=== PATIENT | male | born 1940 | race Caucasian/White ===

== ENCOUNTER 2021-01-03 14:40 | Emergency (ER) | payer MEDICARE, OTHER ==
--- NOTE | 2021-01-03 15:07 | EDM.PDOC ---
ED HPI GENERAL MEDICAL PROBLEM - General Chief Complaint: Chest Pain Stated Complaint: CHEST PAIN/DISCOMFORT Time Seen by Provider: 01/03/21 15:00 Source of Information: Reports: Patient, Provider. Denies: Old Records (no old records) History Limitations: Reports: Other (limited records) - History of Present Illness INITIAL COMMENTS - FREE TEXT/NARRATIVE: 80 yo male new in the area from [place] presents with intermittent chest pain over the past few days associated with exertion and fatigue. He was seen a couple days ago in the clinic for this fatigue and now today when he returned for follow up he mentioned he was having mild chest discomfort and was then referred to the ER. He has a remote hx of receiving 2 coronary stents and has had a "Watchman procedure" for prevention of CVA from his afib which is chronic. Takes an enteric coated baby aspirin daily. Onset: Gradual Onset Date: 12/31/20 Duration: Day(s): (3), Waxing/Waning Location: Reports: Chest Quality: Reports: Other ("discomfort") Severity: Mild Improves with: Reports: Rest Worsens with: Reports: Movement (exertion) Context: Reports: Other (See HPI) Associated Symptoms: Reports: Chest Pain, Other (fatigue). Denies: Diaphoresis Treatments EVENTS ADMINISTRATIVE ASSISTANT: Reports: Other (see below) (none) - Related Data Allergies Allergy/AdvReac Type Severity Reaction Status Date / Time No Known Allergies Allergy Verified 01/03/21 15:24 Home Meds: Home Meds Alfuzosin [Uroxatral] 1 tab PO BEDTIME 01/03/21 [History] Aspirin 1 tab PO DAILY 01/03/21 [History] Doxycycline [Vibramycin] 1 tab PO BID 01/03/21 [History] Furosemide [Lasix] 1 tab PO DAILY 01/03/21 [History] Hydroxychloroquine Sulfate [Plaquenil] 1 tab PO DAILY 01/03/21 [History] LORazepam [Ativan] 1 tab PO BID 01/03/21 [History] Metoprolol Succinate [Toprol Xl] 1 tab PO BEDTIME 01/03/21 [History] Potassium Chloride [Klor-Con 10] 2 tab PO BID 01/03/21 [History] Valsartan 1 tab PO DAILY 01/03/21 [History] Zolpidem Tartrate [Ambien] 1 tab PO DAILY 01/03/21 [History] amLODIPine [Norvasc] 1 tab PO DAILY 01/03/21 [History] atorvaSTATin Calcium [Lipitor] 1 tab PO BEDTIME 01/03/21 [History] predniSONE [Prednisone] 1.5 tab PO DAILY 01/03/21 [History] ED ROS GENERAL - Review of Systems Review Of Systems: See Below Constitutional: Reports: Fatigue HEENT: Reports: No Symptoms Respiratory: Reports: No Symptoms Cardiovascular: Reports: Chest Pain Endocrine: Reports: No Symptoms GI/Abdominal: Reports: No Symptoms : Reports: No Symptoms Musculoskeletal: Reports: No Symptoms Skin: Reports: No Symptoms Neurological: Reports: No Symptoms Psychiatric: Reports: No Symptoms ED EXAM, GENERAL - Physical Exam Exam: See Below Exam Limited By: No Limitations General Appearance: Alert, WD/WN, No Apparent Distress Eye Exam: Bilateral Eye: Normal Inspection Ears: Normal External Exam, Normal Canal, Hearing Grossly Normal, Normal TMs Ear Exam: Bilateral Ear: Auricle Normal, Canal Normal, TM normal Nose: Normal Inspection, No Blood Throat/Mouth: Normal Inspection, Normal Lips, Normal Oropharynx, Normal Voice, No Airway Compromise Head: Atraumatic, Normocephalic Neck: Normal Inspection Respiratory/Chest: No Respiratory Distress, Lungs Clear, Normal Breath Sounds, No Accessory Muscle Use Cardiovascular: No Edema, Irregularly Irregular. No: Tachycardia GI/Abdominal: Normal Bowel Sounds, Soft, Non-Tender, No Distention Extremities: Normal Inspection, Normal Range of Motion, No Pedal Edema. No: Pedal Edema, Wilberto's Sign Neurological: Alert, Oriented, CN II-XII Intact, Normal Cognition, No Motor/Sensory Deficits Psychiatric: Normal Affect, Normal Mood Skin Exam: Warm, Dry, Intact, Normal Color, No Rash #1 Interpretation EKG Date: 01/03/21 Time: 15:00 Rhythm: A-Fib Rate (Beats/Min): 70 [place]: Normal P-Wave: Present QRS: Normal ST-T: Normal QT: Normal Comparison: NA - No Prior EKG Course - Vital Signs Text/Narrative:: Called [facility] @ 1738h, Last Recorded V/S: Last Vital Signs Temp 36.4 C 01/03/21 15:36 Pulse 71 01/03/21 16:47 Resp 15 01/03/21 16:47 BP 170/91 H 01/03/21 16:47 Pulse Ox 98 01/03/21 16:47 - Orders/Labs/Meds Orders: Active Orders 24 hr Category Date Time Status EKG Documentation Completion [RC] ASDIRECTED Care 01/03/21 14:43 Active Sodium Chloride 0.9% [Saline Flush] Med 01/03/21 15:49 Active 10 ml FLUSH ASDIRECTED PRN Saline Lock Insert [OM.PC] Routine Oth 01/03/21 15:49 Ordered EKG 12 Lead [EK] Routine Ther 01/03/21 14:43 Ordered Medication Orders Sodium Chloride (Sodium Chloride 0.9% 10 Ml Syringe) 10 ml FLUSH ASDIRECTED PRN PRN Reason: Keep Vein Open Labs: Laboratory Tests 01/03/21 01/03/21 Range/Units 14:43 14:55 D-Dimer, Quantitative 3135.17 H (0.0-500.0) ng/mL Troponin I < 0.017 (0.000-0.056) ng/mL Meds: Medications Generic Name Dose Route Start Last Admin Trade Name Freq PRN Reason Stop Dose Admin Sodium Chloride 10 ml 01/03/21 15:49 Sodium Chloride 0.9% 10 Ml Syringe FLUSH ASDIRECTED PRN Keep Vein Open Discontinued Medications Generic Name Dose Route Start Last Admin Trade Name Freq PRN Reason Stop Dose Admin Aspirin 324 mg 01/03/21 15:19 Aspirin 81 Mg Tab.Chew PO 01/03/21 15:20 ONETIME ONE Sodium Chloride 97 mls @ 3.5 mls/sec 01/03/21 16:15 01/03/21 16:18 Normal Saline IV 01/03/21 16:16 3.5 mls/sec ASDIRECTED MARY LOU Administration Iopamidol 100 ml 01/03/21 16:15 01/03/21 16:18 Iopamidol 755 Mg/Ml 100 Ml Bottle IV 01/03/21 16:16 100 ml . DIRECTED MARY LOU Administration Sodium Chloride 10 ml 01/03/21 16:08 01/03/21 16:18 Sodium Chloride 0.9% 10 Ml Syringe FLUSH 01/03/21 16:09 10 ml ONETIME ONE Administration - Radiology Interpretation Free Text/Narrative:: angio chest- IMPRESSION: No sign of pulmonary embolism. Mild diffuse peripheral ground-glass reticular density in the lateral and posterior lower lungs consistent with UIP. Previous granulomatous disease. 3 millimeter nonobstructive calculus in the upper pole of the right kidney. Please note that all CT scans at this facility use dose modulation, iterative reconstruction, and/or weight-based dosing when appropriate to reduce radiation dose to as low as reasonably achievable. Dictated by Abraham To MD @ 01/03/2021 5:31:39 PM (Electronic Signature) CT Results Date: 01/03/21 CT Results Time: 17:34 Departure - Departure Time of Disposition: 17:47 Disposition: Home, Self-Care 01 Condition: Serious Clinical Impression: Unstable angina Instructions: Angina, [id number] Referrals: PCP,None [Primary Care Provider] - Forms: ED Department Discharge Additional Instructions: Continue your current meds. Use nitroglycerin as needed for chest pain. See your doctor soy. Sepsis Event Note (ED) - Focused Exam Vital Signs: Vital Signs Temp Pulse Resp BP Pulse Ox 01/03/21 16:47 71 15 170/91 H 98 01/03/21 15:36 36.4 C 81 21 H 117/66 94 L 01/03/21 15:07 36.4 C 81 21 H 117/66 94 L - My Orders Last 24 Hours: My Active Orders 01/03/21 14:43 EKG Documentation Completion [RC] ASDIRECTED EKG 12 Lead [EK] Routine 01/03/21 15:49 Sodium Chloride 0.9% [Saline Flush] 10 ml FLUSH ASDIRECTED PRN Saline Lock Insert [OM.PC] Routine - Assessment/Plan Last 24 Hours: My Active Orders 01/03/21 14:43 EKG Documentation Completion [RC] ASDIRECTED EKG 12 Lead [EK] Routine 01/03/21 15:49 Sodium Chloride 0.9% [Saline Flush] 10 ml FLUSH ASDIRECTED PRN Saline Lock Insert [OM.PC] Routine
[2021-01-03] MEDS ORDERED: Aspirin 81 MG Tab.Chew PO ONE (15:19)
[2021-01-03] MEDS ORDERED: Sodium Chloride 0.9% 10 ML Syringe FLUSH PRN (15:49)
[2021-01-03] MEDS ORDERED: Sodium Chloride 0.9% 10 ML Syringe FLUSH ONE (16:08)
[2021-01-03] MEDS ORDERED: SODIUM CHLORIDE 0.9% IV SCH (16:15)
[2021-01-03] MEDS ORDERED: Iopamidol 755 Mg/ML 100 ML Bottle IV SCH (16:15)
--- NOTE | 2021-01-03 17:33 | CRLCT ---
For Patients: As a result of the Century Cures Act, medical imaging exams and procedure reports are released immediately into your electronic medical record. You may view this report before your referring provider. If you have questions, please contact your health care provider. INDICATION: Chest pain. Elevated D-dimer. COMPARISON: None available TECHNIQUE: CT examination of the chest was performed with the uneventful intravenous administration of 100 cc of Omnipaque 350 while 2 mm thick axial sections were obtained through the pulmonary arteries. Please note that all CT scans at this facility use dose modulation, iterative reconstruction, and/or weight-based dosing when appropriate to reduce radiation dose to as low as reasonably achievable. FINDINGS: : There is no sign of pulmonary embolism, with normal enhancement and branching of the pulmonary arteries. There are a few small calcified granulomata in the posterior lung bases bilaterally. There is mild patchy peripheral reticular scarring in the lower lungs bilaterally, extending along the lateral lower lungs as well, consistent with UIP. The lungs are otherwise clear with no sign of significant infiltrate or mass. There is no sign of mediastinal or hilar mass or adenopathy. There is a left atrial appendage occlusion device. There is heavy LAD and LCX coronary calcification. The heart is normal in size. There is age appropriate appearance of the thoracic aorta and ascending great vessels. There is no sign of supraclavicular or axillary mass or adenopathy. The visualized superior liver, spleen, pancreas, left kidney, and adrenals are normal in appearance. There is a 3 millimeter nonobstructive calculus in the upper pole of the right kidney. The osseous structures are normal in appearance for the patient`s age. IMPRESSION: No sign of pulmonary embolism. Mild diffuse peripheral ground-glass reticular density in the lateral and posterior lower lungs consistent with UIP. Previous granulomatous disease. 3 millimeter nonobstructive calculus in the upper pole of the right kidney. Please note that all CT scans at this facility use dose modulation, iterative reconstruction, and/or weight-based dosing when appropriate to reduce radiation dose to as low as reasonably achievable. Dictated by Abraham To MD @ 01/03/2021 5:31:[address] Abraham To @ Jan 03 2021 5:31PM
== END 2021-01-03 18:22 | disposition left against medical advice (07) ==
LOC: JP.ED 14:40
DX: I20.0 Unstable angina (principal); Z79.82 Long term (current) use of aspirin; Z79.899 Other long term (current) drug therapy
CPT/HCPCS: 36415; 71275; 84484; 85379; 93005; 93010; 99284; 99285; Q9967

== ENCOUNTER 2021-02-07 09:31 | Emergency (ER) | payer MEDICARE, OTHER ==
--- NOTE | 2021-02-07 09:57 | EDM.PDOC ---
ED HPI GENERAL MEDICAL PROBLEM - General Stated Complaint: CHEST PAIN FROM CLINIC Time Seen by Provider: 02/07/21 09:43 Source of Information: Reports: Patient, Old Records, RN Notes Reviewed History Limitations: Reports: No Limitations - History of Present Illness INITIAL COMMENTS - FREE TEXT/NARRATIVE: 80-year-old gentleman presents emergency department day complaint of chest pain that will wax and wane, he has a known history of aortic stenosis status post transaortic valve replacement. He recently had this surgery done earlier this year he currently has a loop recorder in place. Did present to the walk-in clinic complaint of chest pain transported to the emergency department for further evaluation. He denies any shortness of breath does complain of fatigue no nausea or vomiting no diaphoresis no history of coronary artery disease recent left catheterization he underwent left heart catheterization procedure was a transaortic valve replacement early part of January this year does have a k jenifer history of coronary artery disease LAD stenting x2 in 2014 has had atrial fibrillation since 2012 - Related Data Allergies Allergy/AdvReac Type Severity Reaction Status Date / Time No Known Allergies Allergy Verified 02/07/21 09:51 Home Meds: Home Meds Alfuzosin [Uroxatral] 1 tab PO BEDTIME 01/03/21 [History] Aspirin 1 tab PO DAILY 01/03/21 [History] Doxycycline [Vibramycin] 1 tab PO BID 01/03/21 [History] Furosemide [Lasix] 1 tab PO DAILY 01/03/21 [History] LORazepam [Ativan] 1 tab PO BID 01/03/21 [History] Metoprolol Succinate [Toprol Xl] 1 tab PO BEDTIME 01/03/21 [History] Potassium Chloride [Klor-Con 10] 2 tab PO BID 01/03/21 [History] Valsartan 1 tab PO DAILY 01/03/21 [History] Zolpidem Tartrate [Ambien] 1 tab PO DAILY 01/03/21 [History] amLODIPine [Norvasc] 1 tab PO DAILY 01/03/21 [History] atorvaSTATin Calcium [Lipitor] 1 tab PO BEDTIME 01/03/21 [History] predniSONE [Prednisone] 1.5 tab PO DAILY 01/03/21 [History] Nitroglycerin [Nitrostat] 1 tab PO ASDIRECTED PRN 01/04/21 [History] QUEtiapine [SEROquel] 50 mg PO DAILY 02/07/21 [History] Past Medical History Cardiovascular History: Reports: Afib, CAD, Heart Failure, High Cholesterol, Hypertension, Stents (LAD 2014) Musculoskeletal History: Reports: RA - Past Surgical History Cardiovascular Surgical History: Reports: Coronary Artery Stent (2014 in the LAD), Valve Replacement (Transaortic valve replacement 2020) Musculoskeletal Surgical History: Reports: Knee Replacement Social & Family History - Tobacco Use Tobacco Use Status *Q: Former Tobacco User ED ROS GENERAL - Review of Systems Review Of Systems: See Below Constitutional: Reports: No Symptoms HEENT: Reports: No Symptoms Respiratory: Reports: No Symptoms Cardiovascular: Reports: Chest Pain GI/Abdominal: Reports: No Symptoms ED EXAM, GENERAL - Physical Exam Exam: See Below Exam Limited By: No Limitations General Appearance: Alert, No Apparent Distress Respiratory/Chest: No Respiratory Distress, Lungs Clear, Normal Breath Sounds, No Accessory Muscle Use, Chest Non-Tender Cardiovascular: No Murmur, Irregularly Irregular GI/Abdominal: Soft, Non-Tender Extremities: No Pedal Edema #1 Interpretation EKG Date: 02/07/21 Time: 10:09 Rhythm: A-Fib [place]: Normal P-Wave: Absent QRS: Normal ST-T: Normal QT: Normal Comparison: NA - No Prior EKG Course - Vital Signs Last Recorded V/S: Last Vital Signs Temp 97.0 F 02/07/21 09:54 Pulse 97 02/07/21 09:54 Resp 13 02/07/21 09:54 BP 139/90 02/07/21 09:54 Pulse Ox 98 02/07/21 09:54 - Orders/Labs/Meds Orders: Active Orders 24 hr Category Date Time Status Cardiac Monitoring [RC] .As Directed Care 02/07/21 10:00 Active EKG Documentation Completion [RC] ASDIRECTED Care 02/07/21 10:01 Active Peripheral IV Care [RC] . DIRECTED Care 02/07/21 10:01 Active Chest 1V Frontal [CR] Stat Exams 02/07/21 10:01 Taken Morphine Med 02/07/21 10:00 Active 4 mg IVPUSH Q10M PRN Nitroglycerin [Nitrostat] Med 02/07/21 10:00 Active 0.4 mg SL Q5M PRN Sodium Chloride 0.9% [Saline Flush] Med 02/07/21 10:00 Active 10 ml FLUSH ASDIRECTED PRN Peripheral IV Insertion Adult [OM.PC] Stat Oth 02/07/21 10:00 Ordered Saline Lock Insert [OM.PC] Stat Oth 02/07/21 10:00 Ordered EKG 12 Lead [EK] Stat Ther 02/07/21 10:01 Ordered Medication Orders Morphine Sulfate (Morphine 4 Mg/Ml Syringe) 4 mg IVPUSH Q10M PRN PRN Reason: Chest Pain Stop: 02/08/21 10:01 Nitroglycerin (Nitroglycerin 0.4 Mg Tab.Sl) 0.4 mg SL Q5M PRN PRN Reason: Chest Pain Stop: 02/08/21 10:01 Sodium Chloride (Sodium Chloride 0.9% 10 Ml Syringe) 10 ml FLUSH ASDIRECTED PRN PRN Reason: Keep Vein Open Labs: Laboratory Tests 02/07/21 02/07/21 02/07/21 Range/Units 09:52 09:52 09:52 WBC 7.0 (4.5-11.0) K/uL RBC 3.81 L (4.30-5.90) M/uL Hgb 12.5 (12.0-15.0) g/dL Hct 36.6 L (40.0-54.0) % MCV 96 (80-98) fL MCH 33 H (27-31) pg MCHC 34 (32-36) % Plt Count 168 (150-400) K/uL Neut % (Auto) 70.6 H (36-66) % Lymph % (Auto) 15.8 L (24-44) % [place] % (Auto) 11.6 H (2-6) % Eos % (Auto) 1.7 L (2-4) % Baso % (Auto) 0.3 (0-1) % Sodium 142 (140-148) mmol/L Potassium 3.8 (3.6-5.2) mmol/L Chloride 106 (100-108) mmol/L Carbon Dioxide 26 (21-32) mmol/L Anion Gap 9.6 (5.0-14.0) mmol/L BUN 23 H (7-18) mg/dL Creatinine 1.3 (0.8-1.3) mg/dL Est Cr Clr Drug Dosing 46.08 mL/min Estimated GFR (MDRD) 53 L (>60) Glucose 118 H (74-106) mg/dL Lactic Acid 1.5 (0.4-2.0) mmol/L Calcium 8.6 (8.5-10.1) mg/dL Total Bilirubin 0.8 (0.2-1.0) mg/dL AST 33 (15-37) U/L ALT 34 (12-78) U/L Alkaline Phosphatase 82 (46-116) U/L Troponin I < 0.017 (0.000-0.056) ng/mL Total Protein 6.1 L (6.4-8.2) g/dL Albumin 3.2 L (3.4-5.0) g/dL Globulin 2.9 (2.3-3.5) g/dL Albumin/Globulin Ratio 1.1 L (1.2-2.2) Meds: Medications Generic Name Dose Route Start Last Admin Trade Name Freq PRN Reason Stop Dose Admin Morphine Sulfate 4 mg 02/07/21 10:00 Morphine 4 Mg/Ml Syringe IVPUSH 02/08/21 10:01 Q10M PRN Chest Pain Nitroglycerin 0.4 mg 02/07/21 10:00 Nitroglycerin 0.4 Mg Tab.Sl SL 02/08/21 10:01 Q5M PRN Chest Pain Sodium Chloride 10 ml 02/07/21 10:00 Sodium Chloride 0.9% 10 Ml Syringe FLUSH ASDIRECTED PRN Keep Vein Open Discontinued Medications Generic Name Dose Route Start Last Admin Trade Name Freq PRN Reason Stop Dose Admin Aspirin 324 mg 02/07/21 10:00 02/07/21 10:08 Aspirin 81 Mg Tab.Chew PO 02/07/21 10:01 324 mg ONETIME ONE Administration Departure - Departure Time of Disposition: 10:49 Disposition: Home, Self-Care 01 Condition: Fair Clinical Impression: Atypical chest pain Instructions: Nonspecific Chest Pain, Adult, [id number] Referrals: PCP,None [Primary Care Provider] - Additional Instructions: Continue with your regular medications, try some reflux medications such as Zantac, just to see if there is any change in symptoms, please follow-up with your primary care in the next 2 to 3 days for reevaluation call return to the emergency department worsening symptoms Sepsis Event Note (ED) - Focused Exam Vital Signs: Vital Signs Temp Pulse Resp BP Pulse Ox 02/07/21 09:54 97.0 F 97 13 139/90 98 - My Orders Last 24 Hours: My Active Orders 02/07/21 10:00 Cardiac Monitoring [RC] .As Directed Morphine 4 mg IVPUSH Q10M PRN Nitroglycerin [Nitrostat] 0.4 mg SL Q5M PRN Sodium Chloride 0.9% [Saline Flush] 10 ml FLUSH ASDIRECTED PRN Peripheral IV Insertion Adult [OM.PC] Stat Saline Lock Insert [OM.PC] Stat 02/07/21 10:01 EKG Documentation Completion [RC] ASDIRECTED Peripheral IV Care [RC] . DIRECTED Chest 1V Frontal [CR] Stat EKG 12 Lead [EK] Stat - Assessment/Plan Last 24 Hours: My Active Orders 02/07/21 10:00 Cardiac Monitoring [RC] .As Directed Morphine 4 mg IVPUSH Q10M PRN Nitroglycerin [Nitrostat] 0.4 mg SL Q5M PRN Sodium Chloride 0.9% [Saline Flush] 10 ml FLUSH ASDIRECTED PRN Peripheral IV Insertion Adult [OM.PC] Stat Saline Lock Insert [OM.PC] Stat 02/07/21 10:01 EKG Documentation Completion [RC] ASDIRECTED Peripheral IV Care [RC] . DIRECTED Chest 1V Frontal [CR] Stat EKG 12 Lead [EK] Stat Plan: Assessment Acuity = acute Site and laterality = atypical chest pain Etiology = unknown suspicious for reflux Manifestations = none Location of injury = Home Lab values = CBC CMP unremarkable troponin was negative EKG demonstrates atrial fibrillation which is not new, chest x-ray I did review films myself I cannot appreciate any acute process, the official read from radiology is pending Plan He describes his chest pain is lasting just a few seconds it is more in the epigastric region he did have pizza last night I am suspicious for reflux type symptomology. He never received any morphine or nitro while in the emergency department remained relatively chest pain-free. He is anxious about his multiple health conditions. Asked him to follow-up with his primary care in the next 2 to 3 days for reevaluation also to try some reflux medication just to see if there is any improvement This note was dictated using [employer] voice recognition software please call with any questions on syntax or grammar.
[2021-02-07] MEDS ORDERED: Sodium Chloride 0.9% 10 ML Syringe FLUSH PRN (10:00)
[2021-02-07] MEDS ORDERED: Morphine 4 MG/ML Syringe IVPUSH PRN (10:00)
[2021-02-07] MEDS ORDERED: Nitroglycerin 0.4 MG Tab.SL SL PRN (10:00)
[2021-02-07] MEDS ORDERED: Aspirin 81 MG Tab.Chew PO ONE (10:00)
--- NOTE | 2021-02-07 10:49 | CR ---
CHEST: Portable 02/07/2021 at 10:27 AM CLINICAL HISTORY:Chest pain COMPARISON:CT 01/03/2021 FINDINGS: Heart is mildly enlarged. Pulmonary vascularity is normal. There are atherosclerotic changes in the aorta.. No infiltrates are identified. There are no effusions Impression: Cardiomegaly No acute cardiopulmonary process.
== END 2021-02-07 11:03 | disposition home or self-care (01) ==
LOC: JP.ED 09:31
DX: R07.89 Other chest pain (principal); I48.91 Unspecified atrial fibrillation; I25.10 Atherosclerotic heart disease of native coronary artery without angina pectoris; I11.0 Hypertensive heart disease with heart failure; I50.9 Heart failure, unspecified; M06.9 Rheumatoid arthritis, unspecified; Z95.5 Presence of coronary angioplasty implant and graft; Z79.82 Long term (current) use of aspirin; Z79.899 Other long term (current) drug therapy; Z87.891 Personal history of nicotine dependence
CPT/HCPCS: 36415; 71045; 80053; 83605; 84484; 85025; 93005; 99285; A9270

== ENCOUNTER 2021-04-17 09:56 | Emergency (ER) | payer MEDICARE, OTHER ==
[2021-04-17] MEDS ORDERED: Ketorolac 30 MG/ML SDV IM ONE (10:46)
--- NOTE | 2021-04-17 10:51 | EDM.PDOC ---
ED HPI GENERAL MEDICAL PROBLEM - General Chief Complaint: Lower Extremity Injury/Pain Stated Complaint: SORE KNEE VERY PAINFUL Time Seen by Provider: 04/17/21 10:35 Source of Information: Reports: Patient, Old Records, RN History Limitations: Reports: No Limitations - History of Present Illness INITIAL COMMENTS - FREE TEXT/NARRATIVE: 80 yo male presents with R hip and knee pain. 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 Lives here now. 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 His primary at the local [facility] won't give him anything for the pain. Onset: Gradual Duration: Week(s):, Getting Worse Location: Reports: Lower Extremity, Right Quality: Reports: Sharp Severity: Moderate Improves with: Reports: Rest Worsens with: Reports: Movement Context: Reports: Other (See HPI) Associated Symptoms: Reports: Other (thinks the swelling in his legs is related ) Treatments EXPEDITER SERVICE ORDER: Reports: Other (see below) (none) Right Knee Pain Score (Numeric/FACES): 8 - Related Data Allergies Allergy/AdvReac Type Severity Reaction Status Date / Time No Known Allergies Allergy Verified 04/17/21 10:20 Home Meds: Home Meds Alfuzosin [Uroxatral] 1 tab PO BEDTIME 01/03/21 [History] Aspirin 1 tab PO DAILY 01/03/21 [History] Doxycycline [Vibramycin] 1 tab PO BID 01/03/21 [History] Furosemide [Lasix] 1 tab PO DAILY 01/03/21 [History] LORazepam [Ativan] 1 tab PO BID 01/03/21 [History] Metoprolol Succinate [Toprol Xl] 1 tab PO BEDTIME 01/03/21 [History] Potassium Chloride [Klor-Con 10] 2 tab PO BID 01/03/21 [History] Valsartan 1 tab PO DAILY 01/03/21 [History] Zolpidem Tartrate [Ambien] 1 tab PO DAILY 01/03/21 [History] amLODIPine [Norvasc] 1 tab PO DAILY 01/03/21 [History] atorvaSTATin Calcium [Lipitor] 1 tab PO BEDTIME 01/03/21 [History] predniSONE [Prednisone] 1.5 tab PO DAILY 01/03/21 [History] Acetaminophen [Tylenol Extra Strength] 2 tab PO Q8H PRN 04/17/21 [History] Ascorbic Acid [Vitamin C] 1 tab PO DAILY 04/17/21 [History] Fluticasone Propionate [Flonase] 2 sprays INH ASDIRECTED PRN 04/17/21 [History] Gabapentin [Neurontin] 300 mg PO TID 04/17/21 [History] Losartan [Cozaar] 50 mg PO DAILY 04/17/21 [History] Multivitamin 1 tab PO DAILY 04/17/21 [History] Sertraline [Zoloft] 50 mg PO DAILY 04/17/21 [History] Tamsulosin HCl [Flomax] 1 cap PO DAILY 04/17/21 [History] Vitamin E 400 unit PO DAILY 04/17/21 [History] Past Medical History Cardiovascular History: Reports: Afib, CAD, Heart Failure, High Cholesterol, Hypertension, Stents Other Cardiovascular History: valve replaced Musculoskeletal History: Reports: RA - Past Surgical History Cardiovascular Surgical History: Reports: Coronary Artery Stent, Valve Replacement Musculoskeletal Surgical History: Reports: Knee Replacement Social & Family History - Tobacco Use Tobacco Use Status *Q: Never Tobacco User Review of Systems - Review of Systems Review Of Systems: See Below Constitutional: Reports: No Symptoms Musculoskeletal: Reports: Joint Pain (R hip and knee) Skin: Reports: No Symptoms Neurological: Reports: No Symptoms ED EXAM, GENERAL - Physical Exam Exam: See Below Exam Limited By: No Limitations General Appearance: Alert, WD/WN, No Apparent Distress Respiratory/Chest: Lungs Clear, Normal Breath Sounds Cardiovascular: Regular Rate, Rhythm Extremities: Normal Inspection, Pedal Edema (trace pitting edema of both LE's), Limited Range of Motion (R hip more reduced than the L). No: Normal Range of Motion (severely reduced ROM of the R hip), Non-Tender, No Pedal Edema, Wilberto's Sign, Increased Warmth, Redness Neurological: Alert, Oriented, CN II-XII Intact, Normal Cognition, No Motor/Sensory Deficits Psychiatric: Normal Affect, Normal Mood Skin Exam: Warm, Dry, Intact, Normal Color, No Rash Course - Vital Signs Last Recorded V/S: Last Vital Signs Temp 36.7 C 04/17/21 10:19 Pulse 79 04/17/21 10:19 Resp 18 04/17/21 10:19 BP 166/95 H 04/17/21 10:19 Pulse Ox 99 04/17/21 10:19 - Orders/Labs/Meds Orders: Active Orders 24 hr Category Date Time Status Ketorolac [Toradol] Med 04/17/21 10:46 Once 30 mg IM ONETIME ONE - Re-Assessments/Exams Free Text/Narrative Re-Assessment/Exam: 04/17/21 10:53 Will have X-rays from [place] sent here to [facility]. Have an appt for 1330h today with Dr. Leong for [place]. Departure - Departure Time of Disposition: 11:15 Disposition: Home, Self-Care 01 Condition: Fair Clinical Impression: Right hip pain - Discharge Information *PRESCRIPTION DRUG MONITORING PROGRAM REVIEWED*: Not Applicable *COPY OF PRESCRIPTION DRUG MONITORING REPORT IN PATIENT COURT: Not Applicable Instructions: Hip Pain Referrals: Vargas Lora NP [Primary Care Provider] - Additional Instructions: Return here to [facility] by 1:15pm for an orthopedic appt with Dr. Leong. For your leg swelling: avoid salt or salty foods. Elevate your legs above your heart whenever possible. Consider support stockings. Sepsis Event Note (ED) - Evaluation Sepsis Screening Result: No Definite Risk - Focused Exam Vital Signs: Vital Signs Temp Pulse Resp BP Pulse Ox 04/17/21 10:19 36.7 C 79 18 166/95 H 99 - My Orders Last 24 Hours: My Active Orders 04/17/21 10:46 Ketorolac [Toradol] 30 mg IM ONETIME ONE - Assessment/Plan Last 24 Hours: My Active Orders 04/17/21 10:46 Ketorolac [Toradol] 30 mg IM ONETIME ONE
== END 2021-04-17 11:33 | disposition home or self-care (01) ==
LOC: JP.ED 09:56
DX: M25.551 Pain in right hip (principal); I48.91 Unspecified atrial fibrillation; I25.10 Atherosclerotic heart disease of native coronary artery without angina pectoris; I11.0 Hypertensive heart disease with heart failure; I50.9 Heart failure, unspecified; E78.00 Pure hypercholesterolemia, unspecified; Z95.5 Presence of coronary angioplasty implant and graft; Z79.82 Long term (current) use of aspirin; Z79.899 Other long term (current) drug therapy
CPT/HCPCS: 96372; 99283; J1885

== ENCOUNTER 2021-08-10 11:09 | Emergency (ER) | payer MEDICARE, OTHER ==
[2021-08-10] MEDS ORDERED: Metoprolol Tartrate 5 MG/5 ML SDV IVPUSH ONE ×3 (11:57→14:15)
[2021-08-10] MEDS ORDERED: Lactated Ringers 500 ML IV ONE (11:59)
[2021-08-10] MEDS ORDERED: Sodium Chloride 0.9% 10 ML Syringe FLUSH PRN (12:52)
[2021-08-10] MEDS ORDERED: Sodium Chloride 0.9% 100 ML IV SCH (13:00)
[2021-08-10] MEDS ORDERED: Iopamidol 755 Mg/ML 100 ML Bottle IV SCH (13:00)
[2021-08-10] MEDS ORDERED: Enoxaparin 100 MG/1 ML Syringe SUBCUT ONE (14:43)
== END 2021-08-10 17:24 ==
LOC: JP.ED 11:09
DX: I26.92 Saddle embolus of pulmonary artery without acute cor pulmonale (principal); U09.9 Post COVID-19 condition, unspecified; I48.91 Unspecified atrial fibrillation; M79.89 Other specified soft tissue disorders; I25.10 Atherosclerotic heart disease of native coronary artery without angina pectoris; I11.0 Hypertensive heart disease with heart failure; I50.9 Heart failure, unspecified; E78.00 Pure hypercholesterolemia, unspecified; Z95.5 Presence of coronary angioplasty implant and graft; Z79.82 Long term (current) use of aspirin; Z79.899 Other long term (current) drug therapy
CPT/HCPCS: 36415; 71275; 80048; 83735; 84443; 84484; 85027; 93005; 96372; 96374; 96376; 99285; J1650; J3490; J7120; Q9967

== ENCOUNTER 2021-09-01 12:42 | Emergency (ER) | payer MEDICARE, OTHER | END 2021-09-01 16:00 | disposition home or self-care (01) | LOC: JP.ED 12:42 | DX: I11.0 Hypertensive heart disease with heart failure (principal); I50.9 Heart failure, unspecified; I48.91 Unspecified atrial fibrillation; I25.10 Atherosclerotic heart disease of native coronary artery without angina pectoris; E78.00 Pure hypercholesterolemia, unspecified; Z95.5 Presence of coronary angioplasty implant and graft; Z79.82 Long term (current) use of aspirin; Z79.01 Long term (current) use of anticoagulants; Z79.899 Other long term (current) drug therapy | CPT/HCPCS: 36415; 71046; 71046-26; 80053; 83880; 84484; 85025; 85610; 93005; 99285-25 ==

== ENCOUNTER 2021-09-23 09:12 | Inpatient (IN) | payer MEDICARE, OTHER ==
[2021-09-23] MEDS ORDERED: Sodium Chloride 0.9% 10 ML Syringe FLUSH PRN (09:37)
[2021-09-23] MEDS ORDERED: Sodium Chloride 0.9% 1,000 ML IV SCH (09:45)
[2021-09-23] MEDS ORDERED: Norepinephrine Bit/D5W Premix 4 MG in Premix Bag 1 BAG IV SCH (10:03)
[2021-09-23] MEDS ORDERED: LORazepam 2 MG/ML SDV IVPUSH ONE (10:10)
[2021-09-23] MEDS ORDERED: Furosemide 40 MG/4 ML VIAL IVPUSH ONE ×2 (10:12→16:00)
[2021-09-23] MEDS ORDERED: Ondansetron 4 MG/2 ML SDV IV PRN (14:35)
[2021-09-23] MEDS ORDERED: WARFARIN 4 MG PO SCH (14:35)
[2021-09-23] MEDS ORDERED: Melatonin 3 MG Tab PO PRN (14:35)
[2021-09-23] MEDS ORDERED: LORazepam 0.5 MG Tab PO PRN (14:35)
[2021-09-23] MEDS ORDERED: Ondansetron 4 MG Tab.DIS PO PRN (14:35)
[2021-09-23] MEDS ORDERED: Albuterol 0.083% 2.5 MG/3 ML Neb Soln NEB PRN (14:35)
[2021-09-23] MEDS ORDERED: Magnesium Hydroxide 400 MG/5 ML Susp 30 ML Cup PO PRN (14:35)
[2021-09-23] MEDS: Gabapentin 300 MG Cap PO SCH ×2 (15:50→21:00)
[2021-09-23] MEDS ORDERED: Furosemide 40 MG, Furosemide 20 MG IV ONE ×2 (16:00)
[2021-09-23] MEDS: predniSONE 5 MG Tab PO SCH (17:00)
[2021-09-23] MEDS: LORazepam 2 MG/ML SDV IVPUSH PRN (17:12)
[2021-09-23] MEDS ORDERED: LORazepam 2 MG/ML SDV IVPUSH PRN (19:10)
[2021-09-23] MEDS ORDERED: Morphine 2 MG/ML SYRINGE IVPUSH PRN (19:11)
[2021-09-23] MEDS ORDERED: Non-Formulary Medication 1 Each (Trazodone [Trazodone] 100 MG Tablet) PO SCH (21:00)
[2021-09-23] MEDS: Metoprolol Succinate 50 MG Tab.ER PO SCH (21:00)
[2021-09-23] MEDS ORDERED: Non-Formulary Medication 1 Each (Atorvastatin Calcium [Lipitor] 40 MG Tablet) PO SCH (21:00)
[2021-09-23] MEDS: atorvaSTATin 20 MG Tab PO SCH (21:00)
[2021-09-23] MEDS: LORazepam 0.5 MG Tab PO PRN (21:02)
[2021-09-23] MEDS: traZODone 50 MG Tab PO SCH (21:02)
[2021-09-23] MEDS: Alfuzosin 10 MG Tab.ER PO SCH (21:03)
[2021-09-24] MEDS ORDERED: Digoxin 500 MCG/2 ML Amp IVPUSH ONE (00:26)
[2021-09-24] MEDS ORDERED: Furosemide 40 MG/4 ML VIAL IVPUSH ONE (02:00)
[2021-09-24] MEDS: LORazepam 2 MG/ML SDV IVPUSH PRN (04:52)
[2021-09-24] MEDS: LORazepam 0.5 MG Tab PO PRN ×3 (07:50→20:25)
[2021-09-24] MEDS: Acetaminophen 325 MG Tab PO PRN (07:56)
[2021-09-24] MEDS: Gabapentin 300 MG Cap PO SCH ×3 (08:29→20:26)
[2021-09-24] MEDS: predniSONE 5 MG Tab PO SCH (08:30)
[2021-09-24] MEDS: Aspirin 81 MG Tab.Chew PO SCH (08:31)
[2021-09-24] MEDS ORDERED: predniSONE 5 MG Tab PO SCH (09:00)
[2021-09-24] MEDS ORDERED: Escitalopram 10 MG Tab PO SCH (09:00)
[2021-09-24] MEDS: Escitalopram 10 MG Tab PO SCH (09:08)
[2021-09-24] MEDS ORDERED: Furosemide 40 MG/4 ML VIAL IVPUSH SCH (10:00)
[2021-09-24] MEDS: Furosemide 40 MG, Furosemide 20 MG IV SCH ×4 (10:43→17:22)
[2021-09-24] MEDS: Hydrocortisone Sodium Succinate 100 MG/2 ML SDV IVPUSH SCH ×2 (10:45→22:11)
[2021-09-24] MEDS: atorvaSTATin 20 MG Tab PO SCH (20:26)
[2021-09-24] MEDS: Metoprolol Succinate 50 MG Tab.ER PO SCH (20:26)
[2021-09-24] MEDS: traZODone 50 MG Tab PO SCH (20:26)
[2021-09-24] MEDS: Alfuzosin 10 MG Tab.ER PO SCH (20:27)
[2021-09-25] MEDS: Furosemide 40 MG, Furosemide 20 MG IV SCH ×6 (02:18→17:50)
[2021-09-25] MEDS: predniSONE 5 MG Tab PO SCH (08:17)
[2021-09-25] MEDS: Aspirin 81 MG Tab.Chew PO SCH (08:18)
[2021-09-25] MEDS: Gabapentin 300 MG Cap PO SCH ×3 (08:18→21:28)
[2021-09-25] MEDS: Escitalopram 10 MG Tab PO SCH (08:18)
[2021-09-25] MEDS ORDERED: Potassium Chloride 20 MEQ Tab.ER PO ONE ×2 (09:00→17:30)
[2021-09-25] MEDS: Hydrocortisone Sodium Succinate 100 MG/2 ML SDV IVPUSH SCH ×2 (09:06→21:27)
[2021-09-25] MEDS ORDERED: Potassium Chloride 20 MEQ, Lidocaine 1% 2 ML in Sodium Chloride 0.9% 100 ML IV SCH (10:00)
[2021-09-25] MEDS ORDERED: Digoxin 125 MCG Tab PO ONE ×2 (10:30→13:00)
[2021-09-25] MEDS: Metoprolol Succinate 50 MG Tab.ER PO SCH (21:27)
[2021-09-25] MEDS: traZODone 50 MG Tab PO SCH (21:27)
[2021-09-25] MEDS: Alfuzosin 10 MG Tab.ER PO SCH (21:28)
[2021-09-25] MEDS: atorvaSTATin 20 MG Tab PO SCH (21:28)
[2021-09-26] MEDS: Furosemide 40 MG, Furosemide 20 MG IV SCH ×6 (02:14→18:40)
[2021-09-26] MEDS: Aspirin 81 MG Tab.Chew PO SCH (08:38)
[2021-09-26] MEDS: Escitalopram 10 MG Tab PO SCH (08:39)
[2021-09-26] MEDS: Gabapentin 300 MG Cap PO SCH ×3 (08:39→21:33)
[2021-09-26] MEDS: predniSONE 5 MG Tab PO SCH (08:39)
[2021-09-26] MEDS: Potassium Chloride 20 MEQ Tab.ER PO SCH (08:41)
[2021-09-26] MEDS ORDERED: Sodium Chloride 0.65% Nasal Spray 45 ML Bottle NAS PRN (18:06)
[2021-09-26] MEDS: Metoprolol Succinate 50 MG Tab.ER PO SCH (21:33)
[2021-09-26] MEDS: Alfuzosin 10 MG Tab.ER PO SCH (21:34)
[2021-09-26] MEDS: traZODone 50 MG Tab PO SCH (21:34)
[2021-09-26] MEDS: atorvaSTATin 20 MG Tab PO SCH (21:38)
[2021-09-27] MEDS: Furosemide 40 MG, Furosemide 20 MG IV SCH ×2 (02:43)
[2021-09-27] MEDS ORDERED: Potassium Chloride 20 MEQ in Premix Bag 1 BAG IV ONE ×2 (05:30→07:30)
[2021-09-27] MEDS ORDERED: Lidocaine 1% 5 ML VIAL INJECT ONE (05:30)
[2021-09-27] MEDS ORDERED: Potassium Chloride 20 MEQ, Lidocaine 1% 2 ML in Sodium Chloride 0.9% 100 ML IV ONE (07:30)
[2021-09-27] MEDS: predniSONE 5 MG Tab PO SCH (08:00)
[2021-09-27] MEDS: Gabapentin 300 MG Cap PO SCH ×3 (08:01→20:15)
[2021-09-27] MEDS: Aspirin 81 MG Tab.Chew PO SCH (08:01)
[2021-09-27] MEDS: Potassium Chloride 20 MEQ Tab.ER PO SCH (08:01)
[2021-09-27] MEDS: Escitalopram 10 MG Tab PO SCH (08:01)
[2021-09-27] MEDS: Acetaminophen 325 MG Tab PO PRN (09:54)
[2021-09-27] MEDS ORDERED: Furosemide 40 MG/4 ML VIAL IV SCH (10:00)
[2021-09-27] MEDS ORDERED: guaiFENesin/Dextromethorphan 100-10 MG/5 ML Soln 10 ML Cup PO PRN (10:11)
[2021-09-27] MEDS ORDERED: Benzonatate 100 MG Cap PO PRN (10:11)
[2021-09-27] MEDS: Metoprolol Succinate 50 MG Tab.ER PO SCH (20:15)
[2021-09-27] MEDS: atorvaSTATin 20 MG Tab PO SCH (20:17)
[2021-09-27] MEDS: traZODone 50 MG Tab PO SCH (20:17)
[2021-09-27] MEDS: Furosemide 40 MG/4 ML VIAL IV SCH (20:18)
[2021-09-27] MEDS: Alfuzosin 10 MG Tab.ER PO SCH (20:20)
[2021-09-28] MEDS: Acetaminophen 325 MG Tab PO PRN (07:57)
[2021-09-28] MEDS: Aspirin 81 MG Tab.Chew PO SCH (08:04)
[2021-09-28] MEDS: Potassium Chloride 20 MEQ Tab.ER PO SCH (08:05)
[2021-09-28] MEDS: Furosemide 40 MG/4 ML VIAL IV SCH ×2 (08:06→15:30)
[2021-09-28] MEDS: Gabapentin 300 MG Cap PO SCH ×3 (08:08→21:39)
[2021-09-28] MEDS: Escitalopram 10 MG Tab PO SCH (08:09)
[2021-09-28] MEDS: predniSONE 5 MG Tab PO SCH (08:09)
[2021-09-28] MEDS: traMADol 50 MG Tab PO SCH ×2 (10:01→21:39)
[2021-09-28] MEDS: Potassium Chloride 20 MEQ, Lidocaine 1% 2 ML in Sodium Chloride 0.9% 100 ML IV SCH ×2 (10:55→13:22)
[2021-09-28] MEDS: Metoprolol Succinate 50 MG Tab.ER PO SCH (21:40)
[2021-09-28] MEDS: atorvaSTATin 20 MG Tab PO SCH (21:40)
[2021-09-28] MEDS: traZODone 50 MG Tab PO SCH (21:40)
[2021-09-28] MEDS: Alfuzosin 10 MG Tab.ER PO SCH (21:41)
[2021-09-29] MEDS: Furosemide 40 MG/4 ML VIAL IV SCH ×3 (01:26→16:14)
[2021-09-29] MEDS: Aspirin 81 MG Tab.Chew PO SCH (08:35)
[2021-09-29] MEDS: predniSONE 5 MG Tab PO SCH (08:36)
[2021-09-29] MEDS: Escitalopram 10 MG Tab PO SCH (08:36)
[2021-09-29] MEDS: Gabapentin 300 MG Cap PO SCH ×3 (08:36→20:02)
[2021-09-29] MEDS: Potassium Chloride 20 MEQ Tab.ER PO SCH (08:36)
[2021-09-29] MEDS: traMADol 50 MG Tab PO SCH ×2 (08:38→20:05)
[2021-09-29] MEDS ORDERED: Potassium Chloride 20 MEQ Tab.ER PO ONE ×2 (12:00→17:00)
[2021-09-29] MEDS: atorvaSTATin 20 MG Tab PO SCH (20:02)
[2021-09-29] MEDS: Alfuzosin 10 MG Tab.ER PO SCH (20:02)
[2021-09-29] MEDS: Metoprolol Succinate 50 MG Tab.ER PO SCH (20:02)
[2021-09-29] MEDS: traZODone 50 MG Tab PO SCH (20:03)
[2021-09-30] MEDS: predniSONE 5 MG Tab PO SCH (08:00)
[2021-09-30] MEDS: Escitalopram 10 MG Tab PO SCH (08:00)
[2021-09-30] MEDS: Aspirin 81 MG Tab.Chew PO SCH (08:00)
[2021-09-30] MEDS: Gabapentin 300 MG Cap PO SCH ×3 (08:00→21:03)
[2021-09-30] MEDS: Furosemide 40 MG Tab PO SCH (08:01)
[2021-09-30] MEDS: Potassium Chloride 20 MEQ Tab.ER PO SCH (08:02)
[2021-09-30] MEDS: traMADol 50 MG Tab PO SCH ×2 (08:08→21:04)
[2021-09-30] MEDS: Metoprolol Succinate 50 MG Tab.ER PO SCH (21:03)
[2021-09-30] MEDS: atorvaSTATin 20 MG Tab PO SCH (21:03)
[2021-09-30] MEDS: Alfuzosin 10 MG Tab.ER PO SCH (21:04)
[2021-09-30] MEDS: traZODone 50 MG Tab PO SCH (21:04)
[2021-10-01] MEDS: Potassium Chloride 20 MEQ Tab.ER PO SCH (08:29)
[2021-10-01] MEDS: Furosemide 40 MG Tab PO SCH (08:29)
[2021-10-01] MEDS: Escitalopram 10 MG Tab PO SCH (08:29)
[2021-10-01] MEDS: predniSONE 5 MG Tab PO SCH (08:30)
[2021-10-01] MEDS: Gabapentin 300 MG Cap PO SCH ×2 (08:30→13:25)
[2021-10-01] MEDS: Aspirin 81 MG Tab.Chew PO SCH (08:30)
[2021-10-01] MEDS: traMADol 50 MG Tab PO SCH (08:32)
== END 2021-10-01 14:05 | disposition home or self-care (01) | DRG 280 ==
LOC: JP.ED 09:12 → UNDOADMIN 13:35 → JP.ICU 13:35 → UNDOADMIN 14:35 → UNDODISIN 10-01 14:05
PROVIDERS: ADMIT Internal Medicine; ATTEND Internal Medicine
DX: I50.9 Heart failure, unspecified (principal); I13.0 Hypertensive heart and chronic kidney disease with heart failure and stage 1 through stage 4 chronic kidney disease, or unspecified chronic kidney disease; I48.91 Unspecified atrial fibrillation; I11.0 Hypertensive heart disease with heart failure; I26.02 Saddle embolus of pulmonary artery with acute cor pulmonale; I21.A1 Myocardial infarction type 2; Z95.5 Presence of coronary angioplasty implant and graft; Z86.16 Personal history of COVID-19; J96.01 Acute respiratory failure with hypoxia; Z86.711 Personal history of pulmonary embolism; Z95.2 Presence of prosthetic heart valve; N17.9 Acute kidney failure, unspecified; U09.9 Post COVID-19 condition, unspecified; J84.10 Pulmonary fibrosis, unspecified; N18.32 Chronic kidney disease, stage 3b; H91.90 Unspecified hearing loss, unspecified ear; J30.9 Allergic rhinitis, unspecified; E78.00 Pure hypercholesterolemia, unspecified; I25.10 Atherosclerotic heart disease of native coronary artery without angina pectoris; I27.20 Pulmonary hypertension, unspecified; E66.9 Obesity, unspecified; F32.A Depression, unspecified; M19.90 Unspecified osteoarthritis, unspecified site; M06.9 Rheumatoid arthritis, unspecified; N40.0 Benign prostatic hyperplasia without lower urinary tract symptoms; I50.811 Acute right heart failure; J47.9 Bronchiectasis, uncomplicated; E87.6 Hypokalemia; Z95.818 Presence of other cardiac implants and grafts; Z79.82 Long term (current) use of aspirin; Z79.01 Long term (current) use of anticoagulants; Z79.899 Other long term (current) drug therapy; Z79.52 Long term (current) use of systemic steroids; Z87.891 Personal history of nicotine dependence; Z86.718 Personal history of other venous thrombosis and embolism; Z86.73 Personal history of transient ischemic attack (TIA), and cerebral infarction without residual deficits; Z68.29 Body mass index [BMI] 29.0-29.9, adult
CPT/HCPCS: 36415; 51702; 71045; 71250; 80048; 80053; 83605; 83735; 83880; 84132; 84145; 84443; 84484; 85025; 85027; 85610; 87040; 93005; 93010; 93306; 94640; 94660; 96365; 96366; 96375; 97110-GP; 97140-GP; 97162-GP; 97530-GP; 97535-GP; 99222; 99232; 99238; 99285; 99285-25; A9270-GY; J1160; J1720; J1940; J2060; J3480; J7030; J7512

== ENCOUNTER 2021-10-13 11:46 | Inpatient (IN) | payer MEDICARE, OTHER ==
[2021-10-13] MEDS ORDERED: Nitroglycerin 0.4 MG Tab.SL SL ONE (12:32)
[2021-10-13] MEDS ORDERED: Sodium Chloride 0.9% 10 ML Syringe FLUSH PRN ×2 (14:16→18:43)
[2021-10-13] MEDS ORDERED: Sodium Chloride 0.9% 1,000 ML IV SCH (14:30)
[2021-10-13] MEDS ORDERED: Iopamidol 755 Mg/ML 100 ML Bottle IV ONE (14:49)
[2021-10-13] MEDS ORDERED: Sodium Chloride 0.9% 75 ML IV SCH (15:00)
[2021-10-13 18:11] LABS: CORONAVIRUS COVID-19 NAA NEGATIVE (NEGATIVE)
[2021-10-13] MEDS ORDERED: Ondansetron 4 MG/2 ML SDV IV PRN (18:43)
[2021-10-13] MEDS ORDERED: LORazepam 0.5 MG Tab PO PRN (18:43)
[2021-10-13] MEDS ORDERED: Albuterol 0.083% 2.5 MG/3 ML Neb Soln NEB PRN (18:43)
[2021-10-13] MEDS: atorvaSTATin 20 MG Tab PO SCH (20:54)
[2021-10-13] MEDS: Potassium Chloride 20 MEQ Tab.ER PO SCH (20:54)
[2021-10-13] MEDS: traMADol 50 MG Tab PO SCH (20:54)
[2021-10-13] MEDS: traZODone 50 MG Tab PO SCH (20:54)
[2021-10-13] MEDS: Furosemide 20 MG Tab PO SCH (20:55)
[2021-10-13] MEDS: Enoxaparin 100 MG/1 ML Syringe SUBCUT SCH (20:58)
[2021-10-13] MEDS ORDERED: Metoprolol Succinate 50 MG Tab.ER PO SCH (21:00)
[2021-10-13] MEDS: Alfuzosin 10 MG Tab.ER PO SCH (22:29)
[2021-10-13] MEDS: Acetaminophen 325 MG Tab PO PRN (22:29)
[2021-10-14] MEDS: Acetaminophen 325 MG Tab PO PRN (07:45)
[2021-10-14] MEDS ORDERED: Potassium Chloride 20 MEQ Tab.ER PO ONE (08:05)
[2021-10-14] MEDS: Enoxaparin 100 MG/1 ML Syringe SUBCUT SCH ×2 (08:41→21:05)
[2021-10-14] MEDS: Aspirin 81 MG Tab.EC PO SCH (08:45)
[2021-10-14] MEDS: Furosemide 20 MG Tab PO SCH (08:47)
[2021-10-14] MEDS: Escitalopram 10 MG Tab PO SCH (08:47)
[2021-10-14] MEDS: predniSONE 5 MG Tab PO SCH (08:49)
[2021-10-14] MEDS: Ipratropium 0.06% Nasal Spray 15 ML Bottle NAS SCH (08:50)
[2021-10-14] MEDS: traMADol 50 MG Tab PO SCH ×2 (08:53→21:04)
[2021-10-14] MEDS ORDERED: amLODIPine 5 MG Tab PO SCH (09:00)
[2021-10-14] MEDS ORDERED: WARFARIN 4 MG PO SCH (09:00)
[2021-10-14] MEDS ORDERED: Losartan 50 MG Tab PO SCH (09:00)
[2021-10-14] MEDS: Potassium Chloride 20 MEQ Tab.ER PO SCH ×2 (11:02→21:04)
[2021-10-14] MEDS ORDERED: Furosemide 40 MG/4 ML VIAL IVPUSH ONE (18:00)
[2021-10-14] MEDS: atorvaSTATin 20 MG Tab PO SCH (21:04)
[2021-10-14] MEDS: Alfuzosin 10 MG Tab.ER PO SCH (21:05)
[2021-10-14] MEDS: traZODone 50 MG Tab PO SCH (21:05)
[2021-10-14] MEDS: Melatonin 3 MG Tab PO PRN (21:05)
[2021-10-14] MEDS: Albuterol/Ipratropium 3.0-0.5 MG/3 ML Neb Soln NEB SCH (21:05)
[2021-10-14] MEDS ORDERED: Sodium Chloride 0.65% Nasal Spray 45 ML Bottle NAS PRN (21:34)
[2021-10-14] MEDS ORDERED: Calcium Carbonate 500 MG Tab.Chew PO PRN (21:48)
[2021-10-15] MEDS ORDERED: Furosemide 20 MG/2 ML VIAL IVPUSH ONE (06:45)
[2021-10-15] MEDS: Albuterol/Ipratropium 3.0-0.5 MG/3 ML Neb Soln NEB SCH ×4 (07:15→20:41)
[2021-10-15] MEDS: Enoxaparin 100 MG/1 ML Syringe SUBCUT SCH ×2 (07:48→19:20)
[2021-10-15] MEDS: Ipratropium 0.06% Nasal Spray 15 ML Bottle NAS SCH (09:35)
[2021-10-15] MEDS: Aspirin 81 MG Tab.EC PO SCH (09:37)
[2021-10-15] MEDS: Escitalopram 10 MG Tab PO SCH (09:38)
[2021-10-15] MEDS: Potassium Chloride 20 MEQ Tab.ER PO SCH ×2 (09:38→20:41)
[2021-10-15] MEDS: predniSONE 5 MG Tab PO SCH (09:39)
[2021-10-15] MEDS: traMADol 50 MG Tab PO SCH ×2 (09:44→20:45)
[2021-10-15] MEDS ORDERED: Warfarin 5 MG Tab PO ONE (13:00)
[2021-10-15] MEDS ORDERED: Benzocaine/Cetylpyridinium/Menthol Lozenge MUCMEM PRN (17:40)
[2021-10-15] MEDS: Furosemide 20 MG/2 ML VIAL IVPUSH SCH (19:20)
[2021-10-15] MEDS: Alfuzosin 10 MG Tab.ER PO SCH (20:41)
[2021-10-15] MEDS: atorvaSTATin 20 MG Tab PO SCH (20:41)
[2021-10-15] MEDS: Melatonin 3 MG Tab PO PRN (20:41)
[2021-10-15] MEDS: traZODone 50 MG Tab PO SCH (20:42)
[2021-10-16] MEDS: Albuterol/Ipratropium 3.0-0.5 MG/3 ML Neb Soln NEB SCH ×4 (07:03→20:29)
[2021-10-16] MEDS: Enoxaparin 100 MG/1 ML Syringe SUBCUT SCH ×2 (07:24→20:22)
[2021-10-16] MEDS: Furosemide 20 MG/2 ML VIAL IVPUSH SCH ×2 (07:24→18:34)
[2021-10-16] MEDS: Ipratropium 0.06% Nasal Spray 15 ML Bottle NAS SCH (09:00)
[2021-10-16] MEDS: Aspirin 81 MG Tab.EC PO SCH (09:00)
[2021-10-16] MEDS: Potassium Chloride 20 MEQ Tab.ER PO SCH ×2 (09:11→20:23)
[2021-10-16] MEDS: Escitalopram 10 MG Tab PO SCH (09:11)
[2021-10-16] MEDS: traMADol 50 MG Tab PO SCH ×2 (09:13→20:30)
[2021-10-16] MEDS: predniSONE 5 MG Tab PO SCH (09:14)
[2021-10-16] MEDS ORDERED: Aloe Vera/Sodium Chloride Gel 14.1 GM Tube NAS PRN (11:21)
[2021-10-16] MEDS: Clotrimazole 10 MG Troche PO SCH ×3 (13:07→23:16)
[2021-10-16] MEDS ORDERED: Warfarin 2.5 MG Tab PO ONE (17:00)
[2021-10-16] MEDS: atorvaSTATin 20 MG Tab PO SCH (20:23)
[2021-10-16] MEDS: traZODone 50 MG Tab PO SCH (20:24)
[2021-10-16] MEDS: Alfuzosin 10 MG Tab.ER PO SCH (20:25)
[2021-10-16] MEDS: Melatonin 3 MG Tab PO PRN (20:30)
[2021-10-17] MEDS: Clotrimazole 10 MG Troche PO SCH ×5 (05:45→22:35)
[2021-10-17] MEDS: Furosemide 20 MG/2 ML VIAL IVPUSH SCH ×2 (07:19→19:59)
[2021-10-17] MEDS: Enoxaparin 100 MG/1 ML Syringe SUBCUT SCH ×2 (07:26→19:59)
[2021-10-17] MEDS: Albuterol/Ipratropium 3.0-0.5 MG/3 ML Neb Soln NEB SCH ×4 (07:29→20:34)
[2021-10-17] MEDS: Ipratropium 0.06% Nasal Spray 15 ML Bottle NAS SCH (08:22)
[2021-10-17] MEDS: Escitalopram 10 MG Tab PO SCH (08:24)
[2021-10-17] MEDS: predniSONE 5 MG Tab PO SCH (08:24)
[2021-10-17] MEDS: Potassium Chloride 20 MEQ Tab.ER PO SCH ×2 (08:24→20:34)
[2021-10-17] MEDS: Aspirin 81 MG Tab.EC PO SCH (08:24)
[2021-10-17] MEDS: traMADol 50 MG Tab PO SCH ×2 (08:27→20:34)
[2021-10-17] MEDS: traZODone 50 MG Tab PO SCH (20:34)
[2021-10-17] MEDS: atorvaSTATin 20 MG Tab PO SCH (20:34)
[2021-10-17] MEDS: Alfuzosin 10 MG Tab.ER PO SCH (20:35)
[2021-10-18] MEDS: Clotrimazole 10 MG Troche PO SCH ×2 (05:50→09:10)
[2021-10-18] MEDS: Albuterol/Ipratropium 3.0-0.5 MG/3 ML Neb Soln NEB SCH ×2 (07:06→10:45)
[2021-10-18] MEDS: Furosemide 20 MG/2 ML VIAL IVPUSH SCH (08:06)
[2021-10-18] MEDS: Ipratropium 0.06% Nasal Spray 15 ML Bottle NAS SCH (08:12)
[2021-10-18] MEDS: Escitalopram 10 MG Tab PO SCH (08:13)
[2021-10-18] MEDS: Potassium Chloride 20 MEQ Tab.ER PO SCH (08:13)
[2021-10-18] MEDS: predniSONE 5 MG Tab PO SCH (08:13)
[2021-10-18] MEDS: traMADol 50 MG Tab PO SCH (09:09)
[2021-10-18] MEDS: Aspirin 81 MG Tab.EC PO SCH (10:34)
[2021-10-18] MEDS: Enoxaparin 100 MG/1 ML Syringe SUBCUT SCH (10:40)
== END 2021-10-18 13:30 | disposition home or self-care (01) | DRG 291 ==
LOC: JP.ED 11:46 → JP.MS 17:07
PROVIDERS: ADMIT Hospitalist; ATTEND Student in an Organized Health Care Education/Training Program
DX: I11.0 Hypertensive heart disease with heart failure (principal); I26.92 Saddle embolus of pulmonary artery without acute cor pulmonale; I50.33 Acute on chronic diastolic (congestive) heart failure; J96.21 Acute and chronic respiratory failure with hypoxia; I26.99 Other pulmonary embolism without acute cor pulmonale; J84.10 Pulmonary fibrosis, unspecified; H91.90 Unspecified hearing loss, unspecified ear; I50.9 Heart failure, unspecified; U09.9 Post COVID-19 condition, unspecified; E78.00 Pure hypercholesterolemia, unspecified; E66.9 Obesity, unspecified; F32.A Depression, unspecified; M19.90 Unspecified osteoarthritis, unspecified site; M06.9 Rheumatoid arthritis, unspecified; Z96.653 Presence of artificial knee joint, bilateral; Z86.16 Personal history of COVID-19; N40.0 Benign prostatic hyperplasia without lower urinary tract symptoms; J30.9 Allergic rhinitis, unspecified; H35.30 Unspecified macular degeneration; I48.91 Unspecified atrial fibrillation; I25.10 Atherosclerotic heart disease of native coronary artery without angina pectoris; F10.21 Alcohol dependence, in remission; Z79.82 Long term (current) use of aspirin; Z79.01 Long term (current) use of anticoagulants; Z79.52 Long term (current) use of systemic steroids; Z79.899 Other long term (current) drug therapy; Z20.822 Contact with and (suspected) exposure to COVID-19; Z98.49 Cataract extraction status, unspecified eye; Z86.718 Personal history of other venous thrombosis and embolism; Z95.5 Presence of coronary angioplasty implant and graft; Z87.01 Personal history of pneumonia (recurrent); Z86.73 Personal history of transient ischemic attack (TIA), and cerebral infarction without residual deficits; Z87.891 Personal history of nicotine dependence; Z95.2 Presence of prosthetic heart valve; Z86.711 Personal history of pulmonary embolism; Z68.29 Body mass index [BMI] 29.0-29.9, adult
CPT/HCPCS: 0241U; 36415; 71046; 71046-26; 71275; 80048; 83605; 83735; 83880; 84484; 85025; 85610; 87081; 87880-QW; 93005; 93010; 94060; 94640; 99222; 99232; 99239; 99284; 99285-25; A9270-GY; J1650; J1940; J3490; J7030; J7512; J7620; Q9967

== ENCOUNTER 2022-03-09 06:41 | Emergency (ER) | payer MEDICARE, OTHER | END 2022-03-09 08:03 | disposition home or self-care (01) | LOC: JP.ED 06:41 | DX: S40.022A Contusion of left upper arm, initial encounter (principal); I25.10 Atherosclerotic heart disease of native coronary artery without angina pectoris; I11.0 Hypertensive heart disease with heart failure; I50.9 Heart failure, unspecified; E66.9 Obesity, unspecified; Z68.31 Body mass index [BMI] 31.0-31.9, adult; Z79.01 Long term (current) use of anticoagulants; Z79.899 Other long term (current) drug therapy; Z79.82 Long term (current) use of aspirin; Z87.891 Personal history of nicotine dependence; W19.XXXA Unspecified fall, initial encounter | CPT/HCPCS: 99283 ==

== ENCOUNTER 2022-12-24 14:58 | Emergency (ER) | payer MEDICARE, OTHER ==
[2022-12-24] MEDS ORDERED: Furosemide 40 MG/4 ML VIAL IVPUSH ONE ×2 (16:40→18:29)
[2022-12-24] MEDS ORDERED: Sodium Chloride 0.9% 1,000 ML IV SCH (16:45)
[2022-12-24 16:56] LABS: BASE EXCESS VENOUS 2.6 mm/L; BICARBONATE,VENOUS 27.8 mmol/L; CARBOXYHEMOGLOBIN 2.9 % (0.0-1.6); HEMATOCRIT 32.9 % (38.4-49.7); HEMOGLOBIN 10.6 g/dL (12.9-16.9); MEAN CORPUSCULAR HEMOGLOBIN 30.4 pg (31.6-35.5); MEAN CORPUSCULAR HGB CONC 32.2 g/dL (31.6-35.5); MEAN CORPUSCULAR VOLUME 94.3 fL (81.4-99.0); METHEMOGLOBIN 0.5 %; O2 SATURATION VENOUS 77.9; OXYHEMOGLOBIN 75.3 %; PCO2 VENOUS 48.5 mm/Hg; PH,VENOUS 7.377 (7.350-7.450); PO2 VENOUS 45.9 mm/Hg; RED BLOOD CELL COUNT 3.49 M/uL (4.14-5.76); WHITE BLOOD CELL COUNT,WBC 7.7 K/uL (3.2-11.0)
[2022-12-24 17:17] LABS: PROTHROMBIN TIME 19.2 sec (9.2-10.6)
[2022-12-24 17:25] LABS: A/G RATIO 0.8 (1.2-2.2); ALANINE AMINOTRANSFERASE,ALT 26 U/L (12-78); ALBUMIN 2.9 g/dL (3.4-5.0); ALKALINE PHOSPHATASE 78 U/L (46-116); ASPARTATE AMNIOTRANSFERASE,AST 34 U/L (15-37); BILIRUBIN TOTAL 0.7 mg/dL (0.2-1.0); BLOOD UREA NITROGEN,BUN 20 mg/dL (7-18); CALCIUM 8.3 mg/dL (8.5-10.1); CARBON DIOXIDE,CO2 28 mmol/L (21-32); CHLORIDE,CL 104 mmol/L (100-108); CREATININE 0.8 mg/dL (0.8-1.3); EST CRCL DRUG DOSING (CG) 72.42 mL/min; ESTIMATED GFR 89 mL/min (>60); GLUCOSE RANDOM 119 mg/dL (74-106); POTASSIUM,K 4.8 mmol/L (3.6-5.2); PRO B-TYPE NATRIUR PEPT,BNPPRO 409 pg/mL (5-450); PROTEIN TOTAL,TP 6.7 g/dL (6.4-8.2); SODIUM,NA 138 mmol/L (140-148)
[2022-12-24 17:26] LABS: ANION GAP 10.8 mmol/L (5.0-14.0)
[2022-12-24] MEDS ORDERED: Sodium Chloride 0.9% 75 ML IV ONE (17:52)
[2022-12-24] MEDS ORDERED: Iopamidol 755 Mg/ML 100 ML Bottle IV ONE (17:52)
[2022-12-24] MEDS ORDERED: Sodium Chloride 0.9% 10 ML Syringe FLUSH ONE (17:52)
[2022-12-24 18:16] LABS: APPEARANCE,URINE CLEAR (CLEAR); BILIRUBIN,URINE NEGATIVE (NEGATIVE); COLOR,URINE YELLOW (YELLOW); GLUCOSE,URINE NEGATIVE (NEGATIVE); KETONES,URINE NEGATIVE (NEGATIVE); LEUKOCYTE ESTERASE,URINE NEGATIVE (NEGATIVE); NITRITE,URINE NEGATIVE (NEGATIVE); OCCULT BLOOD,URINE NEGATIVE (NEGATIVE); PH,URINE 6.5 (5.0-8.0); PROTEIN,URINE NEGATIVE (NEGATIVE); UROBILINOGEN,URINE 0.2 EU/dL (0.2-1.0)
[2022-12-24 18:22] LABS: AMORPHOUS SEDIMENT,URINE NOT SEEN; BACTERIA,URINE RARE; EPITHELIAL CELLS,URINE NOT SEEN; MUCUS,URINE NOT SEEN; RBC,URINE 0-5 (0-5); WBC,URINE 0-5 (0-5)
== END 2022-12-24 20:10 | disposition home or self-care (01) ==
LOC: JP.ED 14:58
DX: I50.9 Heart failure, unspecified (principal); J18.9 Pneumonia, unspecified organism; I48.91 Unspecified atrial fibrillation; E78.00 Pure hypercholesterolemia, unspecified; E66.9 Obesity, unspecified; Z68.34 Body mass index [BMI] 34.0-34.9, adult; Z79.01 Long term (current) use of anticoagulants; Z79.82 Long term (current) use of aspirin
CPT/HCPCS: 36415; 71045; 71275; 80053; 81001; 82803; 83605; 83880; 84484; 85027; 85379; 85610; 93005; 93010; 96374; 96376; 99283; 99285; J1940; J3490; J7030; Q9967